=== PATIENT | male | born 1985 | race Caucasian/White ===

== ENCOUNTER 2023-04-27 16:18 | Inpatient (IN) | payer BC ==
[2023-04-27 17:29] VITALS: BMI 42.5
[2023-04-27] MEDS ORDERED: NICOTINE 10 MG CARTRIDGE (INHALER) IH PRN (19:07)
[2023-04-27] MEDS ORDERED: guaiFENesin 600 MG TABLET.ER (FP) PO PRN (19:07)
[2023-04-27] MEDS ORDERED: NALOXONE HCL (KLOXXADO) 8 MG SPRAY NS PRN (19:07)
[2023-04-27] MEDS ORDERED: MAGNESIUM HYDROX 2400MG/30ML ORAL SUSPENSION 30 ML CUP PO PRN (19:07)
[2023-04-27] MEDS ORDERED: NALOXONE HCL 0.4 MG/ML VIAL IM PRN (19:07)
[2023-04-27] MEDS ORDERED: ACETAMINOPHEN 325 MG TABLET (FP) PO PRN (19:07)
[2023-04-27] MEDS ORDERED: BENZOCAINE/MENTHOL (CHLORASEPTIC ) LOZENGE MM PRN (19:07)
[2023-04-27] MEDS ORDERED: IBUPROFEN 600 MG TABLET (FP) PO PRN (19:07)
[2023-04-27] MEDS ORDERED: ONDANSETRON *ODT* 4 MG TABLET SL PRN (19:07)
[2023-04-27] MEDS ORDERED: DICYCLOMINE HCL 10 MG CAPSULE PO PRN (19:07)
[2023-04-27] MEDS ORDERED: LOPERAMIDE HCL 2 MG CAPSULE PO PRN (19:07)
[2023-04-27] MEDS ORDERED: IBUPROFEN 400 MG TABLET (FP) PO PRN (19:07)
[2023-04-27] MEDS ORDERED: BENZONATATE 200 MG CAPSULE PO PRN (19:07)
[2023-04-27] MEDS ORDERED: POLYETHYLENE GLYCOL (HEALTHYLAX) 3350 17 GM PACKET PO PRN (19:07)
[2023-04-27] MEDS ORDERED: MELATONIN 5 MG TABLETS PO SCH (22:00)
[2023-04-28] MEDS: THIAMINE HCL 100 MG TABLET (FP) PO SCH ×2 (00:20→23:08)
[2023-04-28] MEDS: PRENATAL VITAMINS W/ FOLIC ACID TABLET (FP) PO SCH (10:15)
[2023-04-28] MEDS: METHOCARBAMOL 500 MG TABLET PO PRN (10:18)
[2023-04-28] MEDS: hydrOXYzine PAMOATE 25 MG CAPSULE (FP) PO PRN (10:18)
[2023-04-28] MEDS: diazePAM 5 MG TABLET PO SCH ×3 (10:45→23:51)
[2023-04-28] MEDS: MAG HYDROX/AL HYDROX/SIMETH 30 ML UNIT-DOSE CUP PO PRN (10:46)
[2023-04-28] MEDS ORDERED: methaDONE HCL 10 MG TABLET (FOR DETOX USE ONLY) PO ONE (17:57)
[2023-04-29] MEDS: diazePAM 5 MG TABLET PO SCH ×3 (06:10→22:41)
[2023-04-29] MEDS: PRENATAL VITAMINS W/ FOLIC ACID TABLET (FP) PO SCH (10:16)
[2023-04-29] MEDS: METHOCARBAMOL 500 MG TABLET PO PRN (10:16)
[2023-04-29] MEDS: hydrOXYzine PAMOATE 25 MG CAPSULE (FP) PO PRN (10:16)
[2023-04-29] MEDS: THIAMINE HCL 100 MG TABLET (FP) PO SCH (22:40)
[2023-04-29] MEDS: cloNIDine HCL 0.1 MG TABLET PO PRN (22:42)
[2023-04-29] MEDS: SUVOREXANT 10 MG TABLET PO PRN (22:44)
[2023-04-30] MEDS: diazePAM 5 MG TABLET PO SCH ×2 (06:18→17:43)
[2023-04-30] MEDS: PRENATAL VITAMINS W/ FOLIC ACID TABLET (FP) PO SCH (09:36)
[2023-04-30] MEDS: diazePAM 5 MG TABLET PO PRN ×2 (09:38→20:34)
[2023-04-30] MEDS: hydrOXYzine PAMOATE 25 MG CAPSULE (FP) PO PRN (09:38)
[2023-04-30] MEDS: METHOCARBAMOL 500 MG TABLET PO PRN (09:38)
[2023-04-30] MEDS ORDERED: methaDONE HCL 10 MG TABLET (FOR DETOX USE ONLY) PO ONE (10:00)
[2023-04-30] MEDS: cloNIDine HCL 0.1 MG TABLET PO PRN (13:08)
[2023-04-30] MEDS: SUVOREXANT 10 MG TABLET PO PRN (22:09)
[2023-04-30] MEDS: THIAMINE HCL 100 MG TABLET (FP) PO SCH (22:10)
[2023-05-01] MEDS: BISMUTH SUBSALICYLATE 524 MG/30 ML PO PRN ×2 (05:40→17:55)
[2023-05-01] MEDS ORDERED: diazePAM 5 MG TABLET PO ONE (06:00)
[2023-05-01] MEDS: METHOCARBAMOL 500 MG TABLET PO PRN ×2 (09:38→22:38)
[2023-05-01] MEDS: PRENATAL VITAMINS W/ FOLIC ACID TABLET (FP) PO SCH (09:38)
[2023-05-01] MEDS: hydrOXYzine PAMOATE 25 MG CAPSULE (FP) PO PRN ×2 (09:38→17:53)
[2023-05-01] MEDS: diazePAM 5 MG TABLET PO PRN (09:40)
[2023-05-01] MEDS ORDERED: cloNIDine HCL 0.1 MG TABLET PO ONE (10:47)
[2023-05-01 16:51] LABS: POTASSIUM 4.2 mmol/L (3.5-5.1)
[2023-05-01 16:52] LABS: HEMATOCRIT 44.6 % (35.4-49); HEMOGLOBIN 15.7 GM/dL (11.7-16.9); MCH 30.4 pg (25.7-33.7); MCHC 35.1 g/dl (32.0-35.9); MEAN CELL VOLUME 86.7 fl (80-96); PLATELET COUNT 244 10^3/uL (134-434); RBC 5.15 M/mm3 (4.00-5.60); RDW 13.4 % (11.9-15.9); WHITE BLOOD COUNT 9.3 K/mm3 (4.0-10.0)
[2023-05-01 16:53] LABS: CALCIUM 9.6 mg/dL (8.5-10.1)
[2023-05-01 16:54] LABS: ALBUMIN 4.9 g/dl (3.4-5.0); BLOOD UREA NITROGEN 7.8 mg/dL (7-18)
[2023-05-01 16:57] LABS: CREATININE 1.1 mg/dL (0.55-1.3)
[2023-05-01 16:59] LABS: TOT PROT 8.7 g/dl (6.4-8.2)
[2023-05-01 17:03] LABS: BILIRUBIN,TOTAL 0.5 mg/dL (0.2-1)
[2023-05-01 17:48] LABS: HIV INTERPRETATION NEGATIVE (NEGATIVE)
[2023-05-01] MEDS ORDERED: SUVOREXANT 10 MG TABLET PO PRN (22:00)
[2023-05-01] MEDS ORDERED: SUVOREXANT 20 MG TABLET PO PRN (22:00)
[2023-05-01] MEDS: THIAMINE HCL 100 MG TABLET (FP) PO SCH (22:38)
[2023-05-02] MEDS: PRENATAL VITAMINS W/ FOLIC ACID TABLET (FP) PO SCH (09:57)
[2023-05-02] MEDS: METHOCARBAMOL 500 MG TABLET PO PRN (09:58)
[2023-05-02] MEDS: hydrOXYzine PAMOATE 25 MG CAPSULE (FP) PO PRN (09:58)
[2023-05-02] MEDS ORDERED: methaDONE HCL 10 MG TABLET (FOR DETOX USE ONLY) PO ONE (10:00)
[2023-05-02] MEDS: THIAMINE HCL 100 MG TABLET (FP) PO SCH (21:29)
[2023-05-02] MEDS ORDERED: QUEtiapine FUMARATE 50 MG TABLET PO PRN (22:00)
[2023-05-03] MEDS: MAG HYDROX/AL HYDROX/SIMETH 30 ML UNIT-DOSE CUP PO PRN (05:15)
[2023-05-03 08:54] VITALS: BP 137/93; PULSE 96; RESP 18; TEMP 97.1
[2023-05-03] MEDS: PRENATAL VITAMINS W/ FOLIC ACID TABLET (FP) PO SCH (11:00)
== END 2023-05-03 09:08 | disposition home or self-care (01) | DRG 773 ==
LOC: YASAS 16:18 → Y6N 20:14
PROVIDERS: ADMIT Allergy & Immunology; ATTEND Surgery
PROC: HZ2ZZZZ Detoxification Services for Substance Abuse Treatment (ICD-10-PCS; principal; 2023-04-27)
DX: F11.23 Opioid dependence with withdrawal (principal); F13.230 Sedative, hypnotic or anxiolytic dependence with withdrawal, uncomplicated; F17.210 Nicotine dependence, cigarettes, uncomplicated; F19.282 Other psychoactive substance dependence with psychoactive substance-induced sleep disorder; F31.9 Bipolar disorder, unspecified; G47.00 Insomnia, unspecified; G40.909 Epilepsy, unspecified, not intractable, without status epilepticus
CPT/HCPCS: 36415; 80053; 83036; 85027; 86780; 87389; 87635; 87811; 93005; 93010; Q0162

== ENCOUNTER 2024-08-21 23:11 | Inpatient (IN) | payer BC ==
[2024-08-21 23:42] VITALS: BMI 39.5
[2024-08-22] MEDS ORDERED: ONDANSETRON *ODT* 4 MG TABLET SL PRN (01:30)
[2024-08-22] MEDS ORDERED: IBUPROFEN 400 MG TABLET (FP) PO PRN (01:30)
[2024-08-22] MEDS ORDERED: BENZONATATE 200 MG CAPSULE PO PRN (01:30)
[2024-08-22] MEDS ORDERED: DICYCLOMINE HCL 10 MG CAPSULE PO PRN (01:30)
[2024-08-22] MEDS ORDERED: IBUPROFEN 600 MG TABLET (FP) PO PRN (01:30)
[2024-08-22] MEDS ORDERED: MAGNESIUM HYDROX 2400MG/30ML ORAL SUSPENSION 30 ML CUP PO PRN (01:30)
[2024-08-22] MEDS ORDERED: LOPERAMIDE HCL 2 MG CAPSULE PO PRN (01:30)
[2024-08-22] MEDS ORDERED: hydrOXYzine PAMOATE 25 MG CAPSULE (FP) PO PRN (01:30)
[2024-08-22] MEDS ORDERED: NALOXONE HCL 0.4 MG/ML VIAL IM PRN (01:30)
[2024-08-22] MEDS ORDERED: guaiFENesin 600 MG TABLET.ER (FP) PO PRN (01:30)
[2024-08-22] MEDS ORDERED: BISMUTH SUBSALICYLATE 524 MG/30 ML PO PRN (01:30)
[2024-08-22] MEDS ORDERED: NALOXONE (NARCAN) HCL 4 MG/0.1 ML SPRAY NS PRN (01:30)
[2024-08-22] MEDS ORDERED: POLYETHYLENE GLYCOL (HEALTHYLAX) 3350 17 GM PACKET PO PRN (01:30)
[2024-08-22] MEDS ORDERED: BENZOCAINE/MENTHOL (CHLORASEPTIC ) LOZENGE MM PRN (01:30)
[2024-08-22] MEDS ORDERED: MAG HYDROX/AL HYDROX/SIMETH 30 ML UNIT-DOSE CUP PO PRN (01:30)
[2024-08-22] MEDS: PRENATAL VITAMINS W/ FOLIC ACID TABLET (FP) PO SCH (10:17)
[2024-08-22] MEDS: MELATONIN 5 MG TABLETS PO SCH (22:35)
[2024-08-22] MEDS: THIAMINE 100 MG TABLET PO SCH (22:35)
[2024-08-23] MEDS ORDERED: cloNIDine HCL 0.1 MG TABLET PO PRN (12:46)
[2024-08-23] MEDS: diazePAM 5 MG TABLET PO PRN (13:10)
[2024-08-23] MEDS: methaDONE HCL 10 MG TABLET (FOR DETOX USE ONLY) PO ONE (13:10)
[2024-08-23] MEDS: diazePAM 5 MG TABLET PO SCH (17:07)
[2024-08-23] MEDS: METHOCARBAMOL 500 MG TABLET PO PRN (17:07)
[2024-08-23] MEDS: PSEUDOEPHEDRINE HCL 60 MG TABLET PO PRN (19:53)
[2024-08-24] MEDS: cloNIDine HCL 0.1 MG TABLET PO SCH (10:34)
[2024-08-24] MEDS: methaDONE HCL 10 MG TABLET PO ONE (10:39)
[2024-08-24] MEDS ORDERED: methaDONE HCL 10 MG TABLET PO PRN (11:53)
[2024-08-24] MEDS: ACETAMINOPHEN 325 MG TABLET (FP) PO PRN (17:11)
[2024-08-24] MEDS ORDERED: FLUTICASONE PROP 0.05% 16 GM NASAL SPRAY NS PRN (17:14)
[2024-08-25] MEDS: diazePAM 5 MG TABLET PO SCH (05:49)
[2024-08-25] MEDS: methaDONE 40 MG, methaDONE 10 MG PO ONE (09:35)
[2024-08-25] MEDS ORDERED: PSEUDOEPHEDRINE HCL 30 MG TABLET PO PRN (09:40)
[2024-08-25] MEDS ORDERED: methaDONE HCL 10 MG TABLET (FOR DETOX USE ONLY) PO ONE (10:00)
[2024-08-26] MEDS ORDERED: cloNIDine HCL 0.1 MG TABLET PO PRN
[2024-08-26] MEDS: diazePAM 5 MG TABLET PO SCH (05:11)
[2024-08-26] MEDS ORDERED: methaDONE 40 MG, methaDONE 20 MG PO ONE (10:00)
[2024-08-26] MEDS: methaDONE 40 MG, methaDONE 10 MG PO ONE (10:18)
[2024-08-26 13:53] LABS: BASO % 0.5 % (0-2.0); EOS % 0.6 % (0-4.5); HEMOGLOBIN 15.2 GM/dL (11.7-16.9); LYMPH % 16.2 % (8-40); MCH 31.6 pg (25.7-33.7); MCHC 35.3 g/dl (32.0-35.9); MEAN CELL VOLUME 89.6 fl (80-96); MEAN PLT VOLUME 9.5 fl (7.5-11.1); MONO % 5.4 % (3.8-10.2); NEUT % 77.3 % (42.8-82.8); PLATELET COUNT 227 10^3/uL (134-434); RBC 4.79 M/mm3 (4.00-5.60); RDW 12.7 % (11.9-15.9); WHITE BLOOD COUNT 10.1 K/mm3 (4.0-10.0)
[2024-08-26 13:58] LABS: POTASSIUM 4.5 mmol/L (3.5-5.1)
[2024-08-26 14:12] LABS: BLOOD UREA NITROGEN 15.3 mg/dL (7-18); CALCIUM 9.5 mg/dL (8.5-10.1)
[2024-08-27] MEDS: diazePAM 5 MG TABLET PO ONE (05:14)
[2024-08-27] MEDS: methaDONE 40 MG, methaDONE 10 MG PO SCH (05:15)
[2024-08-27] MEDS ORDERED: methaDONE HCL 10 MG TABLET PO SCH (06:00)
[2024-08-27 09:04] VITALS: BP 134/86; PULSE 75; RESP 16; TEMP 97.9
[2024-08-27] MEDS ORDERED: methaDONE 40 MG, methaDONE 30 MG PO ONE (10:00)
[2024-08-27] MEDS ORDERED: methaDONE HCL 10 MG TABLET (FOR DETOX USE ONLY) PO ONE (10:00)
[2024-08-28] MEDS ORDERED: methaDONE HCL 40 MG DISPERSABLE TABLET PO ONE (10:00)
[2024-08-29] MEDS ORDERED: methaDONE 80 MG, methaDONE 10 MG PO ONE (10:00)
== END 2024-08-27 09:37 | disposition other institution (70) | DRG 773 ==
LOC: YASAS 23:11 → Y3N 08-22 01:12
PROVIDERS: ADMIT Allergy & Immunology; ATTEND Surgery
PROC: HZ2ZZZZ Detoxification Services for Substance Abuse Treatment (ICD-10-PCS; principal; 2024-08-22)
DX: F11.23 Opioid dependence with withdrawal (principal); F13.20 Sedative, hypnotic or anxiolytic dependence, uncomplicated; F19.280 Other psychoactive substance dependence with psychoactive substance-induced anxiety disorder; F31.9 Bipolar disorder, unspecified; F41.9 Anxiety disorder, unspecified; F17.210 Nicotine dependence, cigarettes, uncomplicated; G40.909 Epilepsy, unspecified, not intractable, without status epilepticus
CPT/HCPCS: 36415; 80048; 80305; 80307; 85025; 86780; 93005; 93010